=== PATIENT | female | born 1940 | race Native Hawaiian/Other Pacific Islander ===

== ENCOUNTER 2023-10-02 18:51 | Observation (INO) | payer MEDICARE, SELFPAY ==
[2023-10-02 13:46] VITALS: BP 156/92
--- NOTE | 2023-10-02 15:23 | ED.GENMED ---
History of Present Illness
General
Chief Complaint: Dizziness
Source: patient
Exam Limitations: none
Time Seen by Provider: 10/02/23 15:11
Nursing documentation reviewed up to this point in time: agreed with
Travel History
Have you had any contact with someone who has COVID-19?: No
Do you have any symptoms of coronavirus? Fever > 100 degrees, chills, cough, shortness of breath, sore throat, loss of taste or smell, muscle aches, or headache?: No
History of Present Illness
History of Present Illness:
82-year-old female with past medical history of depression/anxiety who presents to the emergency room for evaluation of dizziness. Patient reports onset of symptoms this morning around 8 AM�she was recently started on Zoloft 25 mg p.o. daily and
she took her first dose she says at 7:40 AM. She says about 20 minutes later she started to feel dizzy and she has felt dizzy throughout the day. A friend urged her to come to the emergency room for assessment. She describes a room spinning
sensation that has been consistent. No clear triggering or relieving factors noted. Denies any associated headache. Denies any change in her vision or speech. Denies any focal weakness or numbness in her extremities. She denies any associated
nausea or vomiting. She denies any chest pain, palpitations, shortness of breath. She denies having had similar symptoms in the past. She has never taken sertraline or similar medications before; she does not take any other medications.
Review of Systems
Review of Systems
All Other Systems: ROS reviewed and negative except as documented in HPI and ROS
Constitutional: Denies fever or chills
Respiratory: Denies cough or trouble breathing
Cardiac: Denies chest pain, palpitations or syncope
ABD/GI: Denies abdominal pain, nausea or vomiting
: Denies flank pain
Musculoskeletal: Denies neck pain or back pain
Neurological: Reports dizzy; Denies headache, weakness or numbness
Phy Exam
Physical Exam
Physical Exam:
General: Awake, alert, oriented x3; no acute distress
Head: Normocephalic, atraumatic
Eyes: Conjunctiva normal, EOMI without nystagmus, pupils equal round and reactive to light bilaterally
Throat: Airway intact, handling secretions
Neck: Trachea midline, supple without meningismus
Lungs: Clear to auscultation bilaterally, no wheezing, rales, rhonchi
Heart: Regular rate and rhythm, no murmurs, gallops, or rubs
Abd: Soft, non distended, nontender
Neuro: Cranial nerves intact 2 through 12, speech is fluid without dysarthria or aphasia, no limb ataxia, motor and sensory function is intact and symmetric in the upper and lower extremities
Skin: no rash; scattered areas of vitiligo
Extremities: No edema in extremities, equal pulses in all extremities
Scores
Heart Failure Risk
Heart Failure Risk Score: Not Applicable
Heart Score for Chest Pain Patients
STEMI patient?: Not applicable
Withdrawal Assessment of Alcohol
Withdrawal Assessment Completed?: Not applicable
Course
Orders/Labs/Results
Orders:
Orders
10/02/23 13:50
Electrocardiogram (*1) Urgent
Reason for Study: Chest Pain
EKG- Treatment ONCE
10/02/23 15:21
CT Head W/o Iv Contrast Urgent
Comment:
Reason For Exam: dizziness
Meclizine [Antivert] 25 mg PO NOW STA
10/02/23 15:22
0.9% Sodium Chloride 500 ml [Nss] 500 ml IV BOLUS
10/02/23 16:23
Complete Blood Count/With Diff Urgent
Comprehensive Metabolic Panel Urgent
10/02/23 17:10
Urinalysis Reflex To Culture Urgent
Date Specimen was Collected: 10/02/23
Time Specimen was Collected: 17:02
Abnormal Lab Results
10/02/23 10/02/23
16 17:10
WBC 4.4 L 10^3/uL
(4.8-10.8)
MCH 34.7 H pg
(27.0-31.0)
RDW 14.8 H %
(11.5-14.5)
Absolute Lymphs (auto) 0.8 L 10^3/uL
(1.2-3.4)
Lymphocytes % 19.0 L %
(20.5-51.1)
Glucose 110 H mg/dl
(70-99)
Urine Ketones Trace A
(Negative)
10/02/23 16:23
10/02/23 16:23
Vital Signs
Initial and Last Documented VS:
Initial Vital Signs
Temp Pulse Resp BP Pulse Ox
36.4 C 83 20 156/92 97
10/02/23 13:46 10/02/23 13:46 10/02/23 13:46 10/02/23 13:46 10/02/23 13:46
Last Documented Vital Signs
Temp Pulse Resp BP Pulse Ox
36.4 C 79 17 172/92 97
10/02/23 13:46 10/02/23 17:08 10/02/23 17:08 10/02/23 17:08 10/02/23 17:08
MDM/Problems Addressed
Differential Diagnosis Includes:
Adverse reaction to sertraline, peripheral vertigo (BPPV/M�ni�re/lab otitis), acute CVA, anemia, electrolyte derangement, dysrhythmia
MDM/Problems Addressed:
82-year-old female presents for evaluation of dizziness today that started about 20 minutes after taking her first dose of sertraline�it was recently prescribed for anxiety she says. She arrives hypertensive but otherwise normal vitals. Physical
exam as above. Suspect that this is likely an adverse reaction to sertraline�review shows that this can be associated with dizziness and up to 12% of patients, usually short-lived (2 to 4 weeks). Nevertheless given her age we will check basic lab
work including a CBC to rule out anemia, CMP to rule out any electrolyte derangements, EKG to rule out cardiac dysrhythmia. Check CT head in an abundance of caution although very low clinical suspicion that this is an acute CVA especially in the
absence of other neurologic symptoms and with a normal neurologic exam. Will provide some fluids and meclizine for symptom control. Reassess after the above.
Labs reviewed: CBC shows no anemia or other clinically significant abnormalities, CMP within acceptable range. Urinalysis negative for infection. CT head no acute pathology. EKG shows sinus rhythm. Clinical reassessment patient remains awake and
alert. Still hypertensive. She did not have significant improvement with meclizine and fluids she still feels quite dizzy and unsteady. She says she currently lives at home and is very concerned that she is going to have a fall if she should be
discharged in this condition. I do suspect that the most likely cause of this dizziness is adverse effect from sertraline given temporal relationship but given her significant persistent symptoms and current living situation will admit for
observation overnight. Discussed with hospitalist.
Chronic conditions affecting care:
Anxiety/depression
Acute Exacerbation and/or Progression of Chronic Illness:
Acutely hypertensive
Acute Exacerbation and/or Progression of Chronic Illness: HTN
*Radiology
Radiology exam reviewed: radiology read reviewed
*Pulse Oximetry
Patient hypoxic: no
*EKG
Interpreted by ED Provider?: Yes
Heart Rate: 79
Rate: normal
Rhythm: sinus
[place]: normal axis
Interval: normal interval
QRS Pattern: normal QRS
Ischemia: no ischemia
*Critical Care Note
Total Time (30-74mins, 75-104mins- exclusive of procedures): Not Applicable
Data Reviewed
Source: patient
Patient Management
Social determinants of health affecting care: Living situation
Discussion with other providers: Hospitalist (Discussed with hospitalist)
Escalation/DeEscalation of care consider admission/obs:
Admission indicated
ED Attending Note
-
Portions of this chart may have been created with voice recognition software.� Occasional wrong word or��sound alike� substitutions may have occurred due to the inherent limitations of voice recognition software.
Discharge Plan
Departure
Patient Disposition: Admit
Date of Disposition: 10/02/23
Time of Disposition: 17:46
Admit to doctor: Konrad
Presentation/result/management discussed w/ accepting MD/DO: Hospitalist
Patient with high blood pressure during this ER visit?: Yes
Discharge Problem:
Dizziness, Hypertension
Referrals:
Yifan Dong MD [Family Provider] - Follow up in 2-3 days
Interventions
Interventions:
*Risk Screen - Suicide Last Done: 10/02/23 13:46
*General Assessment Last Done: 10/02/23 13:46
*Neglect/Abuse Screening Last Done: 10/02/23 13:46
*ED COVID-19 Vaccine History Last Done: 10/02/23 17:05
ED- Neurological Assessment Last Done: 10/02/23 17:09
ED Swallowing Screen Last Done: 10/02/23 17:40
Discharge Date and Time
Print Language: BURUNDIAN
[2023-10-02 16:35] LABS: % Basophils 0.7 % (0-2); % Eosinophils 0.9 % (0-6); % Immature Granulocytes 0.5 % (0-0.5); % Monocytes 5.7 % (1.7-9.3); % Neutrophils 73.2 % (42.2-75.2); Absolute Lymphocytes 0.8 10^3/uL (1.2-3.4); Absolute Monocytes 0.3 10^3/uL (0.1-0.6); Absolute Neutrophils 3.2 10^3/uL (1.4-6.5); Hemoglobin 14.8 g/dL (12.0-16.0); Mean Corp Hgb Conc. 35.2 g/dL (33.0-37.0); Mean Corpuscular Hgb 34.7 pg (27.0-31.0); Mean Corpuscular Volume 98.6 fL (81.0-99.0); Mean Platelet Volume 10.1 fL (7.4-10.4); Nucleated Red Blood Cells % 0 %; Platelet Count 213 10^3/uL (130-400); Red Blood Cell Count 4.26 10^6/uL (4.20-5.40); Red Cell Dist. Width 14.8 % (11.5-14.5); White Blood Cell Count 4.4 10^3/uL (4.8-10.8)
[2023-10-02 16:46] LABS: ALT (SGPT) 16 U/L (0-35); AST (SGOT) 28 U/L (14-36); Albumin 4.5 g/dl (3.5-5.0); Alkaline Phosphatase 64 U/L (38-126); Blood Urea Nitrogen 11 mg/dl (7-17); Calcium 9.6 mg/dl (8.4-10.2); Carbon Dioxide 23 mmol/L (22-30); Chloride 102 mmol/L (98-107); Glucose 110 mg/dl (70-99); Potassium 4.3 mmol/L (3.5-5.1); Sodium 135 mmol/L (135-145); Total Bilirubin 0.8 mg/dl (0.2-1.3); eGFR > 60.00
[2023-10-02] MEDS: NSS 500 IV (16:51)
[2023-10-02] MEDS: ANTIVERT 25 MG PO (16:51)
[2023-10-02 17:05] VITALS: BMI 21.3
[2023-10-02 17:08] VITALS: BP 172/92
[2023-10-02 17:27] LABS: Urine Albumin Negative (Neg - Trace); Urine Bilirubin Negative (Negative); Urine Character Clear (Clear); Urine Color Yellow; Urine Glucose Negative (Negative); Urine Ketone Trace (Negative); Urine Leukocyte Negative (Negative); Urine Nitrite Negative (Negative); Urine Occult Blood Negative (Negative); Urine Urobilinogen Negative (Neg - 1+); Urine pH 6.5 (5.0-9.0)
--- NOTE | 2023-10-02 18:02 | HPS.HSE ---
Family Physician
-
Family Physician: Yifan Dong
Chief Complaint
-
dizzy
History of Present Illness
82-year-old female with past medical history of depression/anxiety who presents to the emergency room for evaluation of dizziness. she noted very nervous, anxiety and felt extreme dizzy 20minutes after taking Zoloft. she was prescribed Zoloft for
the first time today. stated felt like the room was spinning. dizzy persisted throughout the days. denied BAKER. denied chest pain, sob. denied fever, chills, runny nose,congestion,cough. denied abdominal pain, n,v,d. denied dysuria or hematuria. she
was recently started on Zoloft 25 mg p.o. daily and she took her first dose she says at 7:40 AM. She says about 20 minutes later she started to feel dizzy and she has felt dizzy throughout the day.
Head ct with no acute finding. received fluids and meclizine in ER with no relief in her symptoms. admitting for further management.
Medical History
Past Medical History
Past Medical History: Reports Other
Past Surgical History: Reports Other
Social History
Tobacco: Non-smoker
Alcohol: Daily (1-2 glass of wine)
Drug: None
Family History
Family History: Not pertinent
Allergies / Home Medications
Allergies reflects when Allergies were last updated in [employer].
Home Medications with original date entered in [employer]
Allergy/Medication List:
Allergies
Allergy/AdvReac Type Severity Reaction Status Date / Time
No Known Allergies Allergy Verified 10/02/23 13:50
Home Medications
ascorbic acid (vitamin C) 500 mg tablet (Vitamin C) 500 mg PO DAILY 10/02/23
cholecalciferol (vitamin D3) 25 mcg (1,000 unit) tablet (Vitamin D3) 25 mcg PO DAILY 10/02/23
cyanocobalamin (vitamin B-12) 1,000 mcg tablet (Vitamin B-12) 1,000 mcg PO DAILY 10/02/23
lorazepam 1 mg tablet 0.5 - 1 mg PO BID PRN anxiety/insomnia 10/02/23
sertraline 25 mg tablet 25 mg PO DAILY 10/02/23
vitamin A 2,400 mcg capsule 2,400 mcg PO DAILY 10/02/23
Review of Systems
-
Constitutional: Reports No Symptoms
EENT: Reports No Symptoms
Respiratory: Reports No Symptoms
Cardiac: Reports No Symptoms
Abdomen/GI: Reports No Symptoms
: Reports No Symptoms
Musculoskeletal: Reports No Symptoms
Skin: Reports No Symptoms
Neurological: Reports Dizzy
Endocrine: Reports No Symptoms
Hematologic/Lymphatic: Reports No Symptoms
Psych: Reports No Symptoms
Physical Exam
Vital Signs
Vital Signs
Temp Pulse Resp BP Pulse Ox
97.6 F 79 17 172/92 97
10/02/23 13:46 10/02/23 17:08 10/02/23 17:08 10/02/23 17:08 10/02/23 17:08
Physical Exam
General: Well Developed, Well Nourished and No Apparent Distress
HEENT: NormoCephalic, Moist mucous membranes and Atraumatic
Respiratory: Clear
Cardiac: S1/S2 and Regular Rhythm; No Murmur or Rub
GI: Soft, Non Tender, Non Distended and Normal Bowel Sounds; No Organomegaly
Rectal: Deferred by Provider
Musculoskeletal: No Clubbing, No Cyanosis and No Edema
Skin: No Rash
Neuro: Nonfocal/grossly intact
Laboratory Results
-
10/02/23 16:23
10/02/23 16:23
Laboratory Results
Total Bilirubin 0.8 mg/dl (0.2-1.3) 10/02/23 16:23
AST 28 U/L (14-36) 10/02/23 16:23
ALT 16 U/L (0-35) 10/02/23 16:23
Alkaline Phosphatase 64 U/L (38-126) 10/02/23 16:23
Data Reviewed
-
CT Scan: Report Reviewed by me
Lab Data: Labs Reviewed by me
Impression/Plan
-
# Acute onset dizziness likely from Zoloft
-CT head negative
-EKG with NSR
-meclizine prn for vertigo
-obtain orthostatics
-obtain MRI
-PT/OT consult
-neurology consulted
#hxt of hypertension likely from anxiety
-BP elevated in ER
-ctm
#anxiety
-hold sertraline
-lorazepam continued as needed for anxiety.
#DVT prophylaxis
-scd
#CODE status
-full code
--- NOTE | 2023-10-02 18:15 | W.PN.UPDATE ---
Update Note
Progress Note Update
I saw and examined the patient.
The KIER OPERATOR or PA's note was reviewed and I agree with the note.
Comment: 82-year-old female presents with dizziness/vertigo.
172/92, 79, 17, 97.6 �F, 97% RA
NAD, awake and alert
RRR, normal S1/S2
CTAB
+BS/soft/NT/ND
CN2-12 intact, 5/5 strength x 4
ECG (read by me): NSR 79, nl axis, QTc 467ms, no acute ST/TW changes
CT brain: No acute intracranial abnormality noted. Chronic microvascular white matter ischemic disease. Atrophy.
Cr 0.6, K 4.3
Dizziness:
-Patient was restarted on Zoloft and 12% of patients can develop dizziness with this medication as an adverse effect
-no electrolyte abnormalities
-U/A unremarkable (but no urinary symptoms so no reason to check)
-check orthostatic VS
-will check MRI brain and c/s neuro
-monitor on tele
-overall dizziness is likely due to Zoloft which will be held and not restarted
-PT/OT
[2023-10-02] MEDS: ASPIRIN ENTERIC COATED 325 MG PO (19:08)
[2023-10-02 19:19] VITALS: BP 150/90
--- NOTE | 2023-10-02 20:30 | PTCARENOTE ---
Patient admitted from ED. Patient AAO x3, on RA, in no acute distress but does complain of dizziness. Patient is standby assist for safety. Tele monitor applied. Patient oriented to room and call french is within reach.
[2023-10-02 20:47] VITALS: BP 162/88; BMI 19.5
[2023-10-02 23:24] VITALS: BP 144/81
[2023-10-03] VITALS (8 sets, daily range): BP systolic 105–166; BP diastolic 61–92; PULSE 66–78
--- NOTE | 2023-10-03 04:45 | DOWNTIME ---
There was a [employer] Downtime on 10/03/2023 from 0100 to 10/03/2023 at 0439. Downtime documentation of patient's care, including medication administrations, has been reconciled in the electronic record per guidelines. Refer to the
patient's paper chart under the miscellaneous tab to see printed paper medication records and downtime forms.
--- NOTE | 2023-10-03 08:23 | W.PN.HOSP.TC ---
Addendum entered and electronically signed by Apollo Silvestre MD 10/03/23 14:08:
Total time spent on d/c = 31 min. This included today's physical exam, progress note, review of laboratory and diagnostic data, preparation of discharge documents and prescriptions, and discussions about the pt's hospital course and discharge plan
with the patient and other medical biller/coder involved in the patient's care.
Original Note:
Today's Communication/Plan
-
see bold. Likely d/c later today.
Assessment / Plan
Assessment / Plan
Gen: NAD, Awake and alert
Eyes: EOMI, PERRLA, no scleral icterus.
Neck: supple.
CV: RRR, +S1/S2, no m/r/g.
Resp: CTAB, no rales, wheezes, or rhonchi.
Abd: +BS, soft, NT, ND
Skin: No rashes.
Neuro: CN 2-12 intact, non-focal.
Psych: slightly anxious
ECG on admission (read by me): NSR 79, nl axis, QTc 467ms, no acute ST/TW changes
CT brain: No acute intracranial abnormality noted. Chronic microvascular white matter ischemic disease. Atrophy.
Dizziness:
-Patient was restarted on Zoloft and 12% of patients can develop dizziness with this medication as an adverse effect. Overall dizziness was likely due to Zoloft which has been held and will not be restarted.
-no electrolyte abnormalities
-U/A unremarkable (but no urinary symptoms so there was no reason to check)
-check orthostatic VS (the pt cannot be discharged until orthostatic VS checked and entered in [facility])
-check MRI brain
-appreciate neuro. Discussed with Dr. Butler and he feels dizziness likely due to Zoloft.
-Tele with SR
-PT/OT
FULL/SCDs
Anticipated Discharge: Today
Subjective/Interval History
-
Date of Service: October 03, 2023
No new complaints.
Objective Data
-
Labs:
Laboratory Results
10/03/23
06:00
WBC Pending
Hgb Pending
Hct Pending
Plt Count Pending
Sodium Pending
Potassium Pending
Chloride Pending
Carbon Dioxide Pending
BUN Pending
Creatinine Pending
Glucose Pending
Calcium Pending
Vital Signs:
Vital Signs
Temp Pulse Resp BP Pulse Ox
98.2 F 75 18 124/78 97
10/03/23 03:15 10/03/23 03:15 10/03/23 03:15 10/03/23 03:15 10/03/23 03:15
I&O
10/02/23 10/03/23 10/04/23
06:59 06:59 06:59
Intake Total 120 / 120
Balance 120 / 120
--- NOTE | 2023-10-03 08:23 | CON.NEURO4 ---
Addendum entered and electronically signed by Ton Butler MD 10/03/23 11:35:
Studies reviewed.
I have personally examined the patient. I reviewed and agree with the [employer] LAYER's Note.
My addenda:
Awake, alert, interactive. No acute distress.
Speech intact.
Follows 2-step requests w/o difficulty. No tremor.
Extra-ocular movements grossly intact.
Facial movements full and symmetric. Hearing intact to normal conversational volume.
Normal UE movements bilaterally.
Neck: full ROM.
Chest: no dyspnea
Heart: no JVD
Ext: (-) Clubbing, (-) Cyanosis, (-) Edema
IMPRESSIONS/RECOMMENDATIONS:
Abrupt onset of dizziness most likely secondary to combination of medication exposure
Possible underlying gait dysfunction which is suggested to be in part due to orthostasis
Follow orthostatic blood pressures with 3-minute increments between each evaluation
Rehabilitation evaluations
As replacement for medication regimen to alleviate the patient's generalized anxiety disorder, patient may benefit from cognitive behavioral therapy, as reviewed with the patient
No need for antiplatelet agents at this time
D/W patient
Will continue to follow peripherally.
Original Note:
Documented by User: Ludivina Bo NP 10/03/23 10:07
Consultation - Neurology 4
-
CONSULTING PHYSICIAN: Ton Butler MD
REFERRING PHYSICIAN: Hospitalists/LETTY Hinton
DICTATED BY: LETTY Cook
DATE/TIME OF REQUEST: 10/02/23
DATE/TIME OF CONSULTATION: 10/03/23
Reason for Consultation: Dizziness
History of Present Illness:
This is an 82-year-old right-handed female who has presented to the hospital with report of dizziness. Patient reports that yesterday (10/02/23) she took her first dose of Zoloft 25mg and 30-40 minutes later she developed a sudden onset vertigo. She
reports feeling a spinning sensation in addition to an unsteady sensation while ambulating. The dizziness did not improve at rest, prompting her to call her PCP who referred her to the ER for evaluation. CT head was obtained in the ER and is
negative for any acute abnormalities. She was provided meclizine with no improvement in symptoms. Today, patient still reports feeling dizzy with standing and ambulation but at rest she feels okay. She is still unsteady on her feet but denies any
falls. She denies any headache, vision changes, hearing changes/tinnitus/ear fullness, speech/swallow difficulty, nausea, numbness, weakness, chest pain, palpitations, and shortness of breath. She reports having episodes of dizziness in the past
similar to this but not as long lasting associated with , taking medications, or being very upset. She denies any recent fever/illness, or history of TIA and stroke. She is not taking any blood thinning medications.
Past Medical History: Mild cognitive impairment, vitiligo, anxiety, depression
Surgical History: Denies.
Family History: Reviewed and noncontributory.
Social History: 1-2 glasses wine/day. Denies tobacco and illicit drug use.
Allergies: No known allergies
Home Medications: See below.
Review of Symptoms:
Patient denies any fever, headache, chest pain, shortness of breath, GI or symptoms.
�Per the HPI.�All systems are reviewed negative except above.
Physical Exam:
The patient is afebrile, abdomen is nondistended, breathing is unlabored, skin is warm and dry, no edema.
NIH Stroke Scale:
I performed the NIH stroke scale on the patient on 10/03/23 at 0830. The patient scored 0 points on the NIH stroke scale assessment, which were assigned as follows: See below.
Neurologic Examination:
The patient is awake, alert and oriented x 3. She is able to follow commands and answer questions appropriately. There is no aphasia or dysarthria. On cranial nerve assessment, pupils are 3 mm bilateral, round and reactive to light and
accommodation. +Arcus senilis. Visual kebede are full. Extraocular movements are intact. Facial sensations are intact and bilaterally symmetrical, there is no facial asymmetry. Hearing is intact bilaterally to finger rub. Tongue palate and uvula are
midline. Sternocleidomastoid strengths are full bilaterally. Motor strengths are 5/5 bilateral upper and lower extremities on medical research [place] scale. There is no drift or involuntary movement noted. Deep tendon reflexes are 2+ bilateral
upper and lower extremities and Babinski is absent bilaterally. There was no extinction noted on double simultaneous stimulation. Coordination is intact by finger to nose bilaterally. Test of skew negative. Gait is unsteady.
Lab Results: See below.
Neuro Imaging:
1. CT Head 10/02/23: No acute intracranial abnormality noted. Chronic microvascular white matter ischemic disease. Atrophy.
Differentials for the patient's presentation include:
1. Dizziness is likely an adverse reaction her first dose of sertraline.
2. Orthostatic vital signs are positive.
3. Low concern for stroke producing dizziness but cannot entirely exclude this.
Patient has the following risk factors for their symptoms: Zoloft initiation.
IV Tenecteplase/IAT candidacy: Not a candidate due to low concern for stroke, NIHSS 0.
Recommendations:
-Avoid sertraline.
-Encourage increased fluid intake, DANNA stockings, abdominal binder, and slow position changes due for orthostasis.
-MRI brain noncontrast pending. Do not see a role for aspirin at this time.
-Neurological checks per unit guidelines.
-Physical therapy evaluations.
-DVT prophylaxis.
-Patient may benefit from cognitive behavioral therapy as an outpatient for depression/anxiety.
Discussed patient care with: Dr. Butler, the patient
Vital Signs and Labs
-
Vital Signs and Labs:
Vital Signs
Temp Pulse Resp BP Pulse Ox
97.7 F 77 16 163/88 99
10/03/23 07:55 10/03/23 07:55 10/03/23 07:55 10/03/23 07:55 10/03/23 07:55
Lab Results
10/03/23 09:15
Sodium 135 mmol/L (135-145) 10/02/23 16:23
Potassium 4.3 mmol/L (3.5-5.1) 10/02/23 16:23
BUN 11 mg/dl (7-17) 10/02/23 16:23
Glucose 110 mg/dl (70-99) H 10/02/23 16:23
Calcium 9.6 mg/dl (8.4-10.2) 10/02/23 16:23
Medications
-
Active Medications
Generic Name Dose Route Start Last Admin
Trade Name Freq PRN Reason Stop Dose Admin
Acetaminophen 650 mg 10/02/23 20:28
Acetaminophen 325 Mg Tablet PO 10/30/23 20:27
Q4HPRN PRN
mild pain/BAKER/temp> 100.4F
Aspirin 81 mg 10/03/23 08:00 10/03/23 08:55
Aspirin 81 Mg Chewable Tablet PO 10/31/23 07:59 81 mg
DAILY VINCENZO Administration
Bisacodyl 10 mg 10/02/23 20:28
Bisacodyl 10 Mg Rectal Suppository RECTAL 10/30/23 20:27
[id number] PRN
constipation
Enoxaparin Sodium 40 mg 10/03/23 18:00
Enoxaparin Sodium 40 Mg/0.4 Ml Syringe SC 10/31/23 17:59
QPM VINCENZO
Lorazepam 1 mg 10/02/23 20:28
Lorazepam 1 Mg Tablet PO 10/30/23 20:27
BIDPRN PRN
anxiety/insomnia
Polyethylene Glycol 17 grams 10/02/23 20:28
Polyethylene Glycol Powder 17 Grams Packet PO 10/30/23 20:27
DAILYPRN PRN
constipation
Senna/Docusate Sodium 1 tablet 10/02/23 20:28
Docusate W/Senna (Svetlana-Colace) Tablet PO 10/30/23 20:27
BIDPRN PRN
constipation
Home Medications
�Medication �Instructions �Recorded
ascorbic acid (vitamin C) 500 mg 500 mg PO DAILY 10/02/23
tablet (Vitamin C)
cholecalciferol (vitamin D3) 25 25 mcg PO DAILY 10/02/23
mcg (1,000 unit) tablet (Vitamin
D3)
cyanocobalamin (vitamin B-12) 1,000 mcg PO DAILY 10/02/23
1,000 mcg tablet (Vitamin B-12)
lorazepam 1 mg tablet 0.5 - 1 mg PO BID PRN 10/02/23
anxiety/insomnia
sertraline 25 mg tablet 25 mg PO DAILY 10/02/23
vitamin A 2,400 mcg capsule 2,400 mcg PO DAILY 10/02/23
NIH Stroke Score
Subsequent NIH Scale
Date of Subsequent NIH Scale: 10/03/23
Time of Subsequent NIH Scale: 08:30
NIH Stroke Score
Level of Consciousness: 0 - Alert
LOC Questions: 0-Answers both correctly
LOC Commands: 0-Performs both correctly
Best Horizontal Gaze: 0-Normal
Visual [place]: 0=Normal, no visual loss
Facial Palsy: 0=Normal, symmetrical
Motor - Right Arm: 0=No drift 10 seconds
Motor - Left Arm: 0=No drift 10 seconds
Motor - Right Le-No drift 5 seconds
Motor - Left Le-No drift 5 seconds
Limb Ataxia: 0-Absent
Sensation: 0-Normal
Best Language: 0-No aphasia
Dysarthria: 0-Normal
Extinction and Inattention: 0-No abnormality
Total Score:: 0

Documented by User: Ton Butler MD 10/03/23 11:31
NIH Stroke Score
NIH Stroke Score
Total Score:: 0
[2023-10-03] MEDS: LOW STRENGTH ASPIRIN 81 MG PO (08:55)
[2023-10-03 09:50] LABS: Hematocrit 41.2 % (37.0-47.0); Hemoglobin 14.4 g/dL (12.0-16.0); Mean Corpuscular Hgb 34.6 pg (27.0-31.0); Mean Platelet Volume 10.1 fL (7.4-10.4); Platelet Count 223 10^3/uL (130-400); Red Blood Cell Count 4.16 10^6/uL (4.20-5.40); Red Cell Dist. Width 14.9 % (11.5-14.5); White Blood Cell Count 4.3 10^3/uL (4.8-10.8)
[2023-10-03 10:14] LABS: Blood Urea Nitrogen 9 mg/dl (7-17); Calcium 9.2 mg/dl (8.4-10.2); Carbon Dioxide 22 mmol/L (22-30); Chloride 105 mmol/L (98-107); Estimated Creatinine Clearance 47 ml/min; Glucose 110 mg/dl (70-99); Potassium 4.3 mmol/L (3.5-5.1); Sodium 136 mmol/L (135-145); eGFR > 60.00
--- NOTE | 2023-10-03 11:09 | CM ---
Addendum entered by Palmira Avendano 10/03/23 15:15:
CM met with patient bedside, patient reports she does not feel comfortable discharging home as she is still very dizzy and resides alone. Patient reports she would like a list of private caregivers and is agreeable to a referral to [facility],
message sent to Hospitalist. Patient reports she would feel better if she stayed one more night and discharged tomorrow. CM will continue to follow for discharge planning needs.
Plan; home with referral to [facility], patient discharge in, patient is not agreeable to discharge.
Original Note:
Patient seen bedside, initial assessment completed. Patient reports she lives alone in a private home where she rents a room on the first floor, one step to enter. Patient denies DME, VN, or SNF. Patient confirms PCP Yifan Dong, pharmacy [facility]
[place]. Patient confirms she has prescription coverage. Patient denies having any food insecurities. Patient reports her friend drove her here, she has another person she pays to drive here around, will contact them to see if they can provide
transportation home if she is being discharged. [facility] form reviewed, signed, placed in chart. Watch for PT/OT evaluations. CM will continue to follow for discharge planning needs.
Plan; home no needs pending PT evals for recommendations.
--- NOTE | 2023-10-03 14:09 | W.DCSUMMARY ---
Discharge Summary
Discharge Data
Date of Admission: 10/02/23
Date of Discharge: 10/04/23
-
Pending Results: No
Hospital Course
Primary diagnoses:
Dizziness/vertigo, likely due to side effect of Zoloft
Secondary diagnoses:
Depression
Anxiety
Consultants:
Neurology
Imaging/studies:
ECG on admission: NSR 79, nl axis, QTc 467ms, no acute ST/TW changes
CT brain: No acute intracranial abnormality noted. Chronic microvascular white matter ischemic disease. Atrophy.
MRI brain: No acute intracranial abnormality noted. Mild chronic microvascular white matter ischemic change. Cerebral and cerebellar cortical atrophy.
Hospital course: 82-year-old female who presented yesterday with a chief complaint of dizziness as outlined in the H&P dictated at the time of admission. The patient was recently started on Zoloft and 12% of patients can develop dizziness with this
medication as an adverse effect. Overall dizziness was likely due to Zoloft which was held not be restarted. Patient had no electrolyte abnormalities. Urinalysis was unremarkable (but no urinary symptoms so there was no reason to check).
Orthostatic vital signs were negative. Cerebral imaging was unremarkable as above. Telemetry showed sinus rhythm. Patient was seen in consultation by physical therapy and Occupational Therapy. Patient was also seen in consultation by neurology.
The case was discussed with Dr. Butler and he felt the patient's dizziness was likely due to Zoloft.
Discharge Plan
-
Patient Disposition: Home (Routine Discharge)
Discharge Diagnosis/Procedures: Dizziness/vertigo, likely due to side effect of Zoloft
Condition: Good
Diet: No restrictions
Activity: As tolerated
Driving Restrictions: Not until seen by your Dr
Bathing Restrictions: None
Referrals:
Yifan Dong MD [Family Provider] - in less than 1 week
Prescriptions:
New
meclizine 25 mg tablet
25 mg PO BID PRN (Reason: dizziness) Qty: 60 0RF
Continued
vitamin A 2,400 mcg Capsule
2,400 mcg PO DAILY
cyanocobalamin (vitamin B-12) [Vitamin B-12] 1,000 mcg Tablet
1,000 mcg PO DAILY
ascorbic acid (vitamin C) [Vitamin C] 500 mg Tablet
500 mg PO DAILY
lorazepam 1 mg tablet
0.5 - 1 mg PO BID PRN (Reason: anxiety/insomnia)
Patient Comments:
10/02/2023: last filled 09/19/23, 30 tabs for 15 days from [id number]
cholecalciferol (vitamin D3) [Vitamin D3] 25 mcg (1,000 unit) Tablet
25 mcg PO DAILY
Discontinued
sertraline 25 mg tablet
25 mg PO DAILY
Discharge Orders:
Discharge Patient (As Directed); Ordered 10/03/23
Ordered By: Apollo Silvestre
Discharge Date and Time
Print Language: MOLDOVAN
--- NOTE | 2023-10-03 17:48 | PTCARENOTE ---
DC ordered. Pt states that she does not feel safe to go home, she lives alone and she does not have anyone to give her a ride. Pt is refusing DC.
[2023-10-03] MEDS: LOVENOX 40 MG SC (18:14)
[2023-10-03] MEDS: ATIVAN 1 MG PO (20:37)
[2023-10-04] MEDS: LOW STRENGTH ASPIRIN 81 MG PO (07:36)
[2023-10-04 08:00] VITALS: BP 150/95
--- NOTE | 2023-10-04 10:40 | CM ---
Patient seen bedside, reports she feels much better, has transportation home. CM provided list of private caregivers, along with referral to [facility]. CM will continue to follow for discharge planning needs.
Plan; home with [facility], list of private caregivers.
--- NOTE | 2023-10-04 11:10 | W.PN.HOSP.TC ---
Today's Communication/Plan
-
d/c
Assessment / Plan
Assessment / Plan
Gen: NAD, Awake and alert
Eyes: EOMI, PERRLA, no scleral icterus.
Neck: supple.
CV: remains RRR, +S1/S2, no m/r/g.
Resp: remains CTAB, no rales, wheezes, or rhonchi.
Abd: +BS, soft, NT, ND
Skin: No rashes.
Neuro: CN 2-12 intact, non-focal.
Psych: normal mood and affect
ECG on admission (read by me): NSR 79, nl axis, QTc 467ms, no acute ST/TW changes
CT brain: No acute intracranial abnormality noted. Chronic microvascular white matter ischemic disease. Atrophy.
Dizziness:
-Patient was restarted on Zoloft and 12% of patients can develop dizziness with this medication as an adverse effect. Overall dizziness was likely due to Zoloft which has been held and will not be restarted.
-no electrolyte abnormalities
-U/A unremarkable (but no urinary symptoms so there was no reason to check)
-orthostatic VS and MRI brain unremarkable
-appreciate neuro. Discussed with Dr. Butler on 10/03/23 and he feels dizziness likely due to Zoloft.
-Tele with [facility]
-PT/OT
FULL/SCDs
Remains medically stable for discharge.
Total time spent on d/c = 31 min. This included today's physical exam, progress note, review of laboratory and diagnostic data, preparation of discharge documents and prescriptions, and discussions about the pt's hospital course and discharge plan
with the patient and other medical transcriber involved in the patient's care.
Anticipated Discharge: Today
Subjective/Interval History
-
Date of Service: October 04, 2023
Pt reports dizziness improving. Still some dizziness with ambulation.
Objective Data
-
Vital Signs:
Vital Signs
Temp Pulse Resp BP Pulse Ox
97.9 F 70 16 150/95 95
10/04/23 08:00 10/04/23 08:00 10/04/23 08:00 10/04/23 08:00 10/04/23 08:00
I&O
10/03/23 10/04/23 10/05/23
06:59 06:59 06:59
Intake Total 120 / 120 1390 / 1390
Balance 120 / 120 1390 / 1390
== END 2023-10-04 11:23 | disposition home health service (06) ==
LOC: 4 WEST ACU 18:51
PROVIDERS: Registered Nurse; ADMITTING PHYSICIAN Internal Medicine; EMERGENCY PHYSICIAN Emergency Medicine; FAMILY PHYSICIAN Family Medicine; OTHER PHYSICIAN Psychiatry & Neurology Neurology
DX: R42 Dizziness and giddiness (principal); F32.A Depression, unspecified; F41.1 Generalized anxiety disorder; R07.9 Chest pain, unspecified; I10 Essential (primary) hypertension
CPT/HCPCS: 70450; 70551; 80048; 80053; 81003; 85025; 85027; 93005; 96360; 97161; 97166; 99285; G0378